=== PATIENT | female | born 1950 | race Caucasian/White ===

== ENCOUNTER → 2023-12-29 12:48 | Outpatient (REF) | payer OTHER, SELFPAY | LOC: RAD 12:48 | PROVIDERS: ATTENDING PHYSICIAN Internal Medicine Rheumatology; FAMILY PHYSICIAN Family Medicine | DX: Z13.820 Encounter for screening for osteoporosis (principal); M81.0 Age-related osteoporosis without current pathological fracture | CPT/HCPCS: 77080 ==

== ENCOUNTER 2024-01-24 06:37 | Day surgery (SDC) | payer OTHER, SELFPAY ==
[2024-01-24 13:30] VITALS: BMI 50.9
[2024-01-24] MEDS: NORMOSOL-R 1000 IV (14:00)
[2024-01-24 16:00] VITALS: BMI 50.9
[2024-01-24 17:46] VITALS: BP 122/81
[2024-01-24 18:00] VITALS: BP 115/91
--- NOTE | 2024-01-24 18:03 | PTCARENOTE ---
1630 Alex , pt's pacing unit, verbalized frustration that they have been here since 1200, OR delay explained, emotional support offered. Nanette Stevens case management director made aware. 165, pt informed OR coming soon, offered blankets and bathroom.
Hilary verbalized anger and frustration, wishes to see case management director and SDs career development manager to complain about delay. Nanette Stevens notified and immediately went bedside to speak to pt and . epic ambulatory specialists here to take pt to the OR at 1715. pt fast
tracked&calm postopP Doroteo RILEY
[2024-01-24 18:15] VITALS: BP 136/71
== END 2024-01-24 18:35 | disposition home or self-care (01) ==
LOC: SDS 06:37
PROVIDERS: ATTENDING PHYSICIAN Orthopaedic Surgery Hand Surgery
DX: G56.02 Carpal tunnel syndrome, left upper limb (principal)
CPT/HCPCS: 64721

== ENCOUNTER → 2024-05-29 15:00 | Outpatient (REF) | payer OTHER, SELFPAY | LOC: MRI 3T 15:00 | PROVIDERS: ATTENDING PHYSICIAN Pain Medicine Interventional Pain Medicine; FAMILY PHYSICIAN Family Medicine | DX: M54.16 Radiculopathy, lumbar region (principal) | CPT/HCPCS: 72148 ==

== ENCOUNTER → 2024-08-31 12:27 | Outpatient (REF) | payer OTHER, SELFPAY | LOC: RCS 12:27 | PROVIDERS: ATTENDING PHYSICIAN Physician Assistant Medical; FAMILY PHYSICIAN Family Medicine | DX: R60.0 Localized edema (principal); I10 Essential (primary) hypertension; I48.0 Paroxysmal atrial fibrillation | CPT/HCPCS: 93306 ==

== ENCOUNTER → 2025-03-29 13:46 | Outpatient (REF) | payer OTHER, SELFPAY | LOC: WDC 13:46 | PROVIDERS: ATTENDING PHYSICIAN Family Medicine | DX: Z12.31 Encounter for screening mammogram for malignant neoplasm of breast (principal) | CPT/HCPCS: 77063; 77067 ==

== ENCOUNTER → 2025-04-09 12:11 | Outpatient (REF) | payer OTHER, SELFPAY | LOC: DHSLP 12:11 | PROVIDERS: ATTENDING PHYSICIAN Family Medicine | DX: G47.33 Obstructive sleep apnea (adult) (pediatric) (principal) | CPT/HCPCS: 95806 ==

== ENCOUNTER 2025-11-17 15:10 | Inpatient (IN) | payer OTHER, SELFPAY ==
[2025-11-17] VITALS (8 sets, daily range): BP systolic 110–183; BP diastolic 39–105; BMI 52.9; BMI 52.8
--- NOTE | 2025-11-17 11:55 | ED.GENMED ---
History of Present Illness
General
Chief Complaint: Breathing Problem
Source: patient and spouse
Exam Limitations: none
Time Seen by Provider: 11/17/25 11:44
History of Present Illness
History of Present Illness:
74-year-old female complaining of cough shortness of breath. Progressive over days. Shortness of breath with exertion. Was ill weeks ago but felt like she was initially getting better. also had a URI at that time. No pleuritic pain no
hemoptysis no sputum. Patient is on Eliquis for atrial fibrillation and faithful with her medications
Past History
Past History
ED Past Medical History: Arrthythmia (PSVT, paroxysmal A. fib), HTN, Hypothyroidism and Other (Cataracts, impaired vision, migraines, back pain); Negative IDDM
ED Past Surgical History: Cardiac (Ablation), Cholecystectomy and Orthopedic
Social History
Tobacco: Non-smoker
Alcohol: None
Drug: None
Personal:
Living: with family
Employment: Employed
Family History
Family History: Hypertension
Review of Systems
Review of Systems
All Other Systems: Not applicable
Constitutional: Denies fever
Respiratory: Reports cough
Cardiac: Denies chest pain or syncope
Phy Exam
Physical Exam
Physical Exam:
GENERAL: Alert and oriented in no apparent distress
EYE: Orbits normal.
NECK: Supple
ENT: Pharynx without erythema
CARDIAC: Regular rate and rhythm without any obvious murmurs.
LUNGS: Occasional coarse cough. Mild bibasilar dry rales and mild end expiratory wheezing on forced expiration
ABDOMEN: Soft, without focal tenderness or distention. Elevated BMI
NEUROLOGICAL: Alert and oriented , grossly non-focal
SKIN: Warm and dry, no rash or lesion, no discoloration, skin intact.
MUSCULOSKELETAL: Chronic nonpitting edema. No erythema no warmth. No cord.
PSYCH: Normal and appropriate interaction.
Scores
Heart Failure Risk
Heart Failure Risk Score: Not Applicable
Course
Orders/Labs/Results
Orders:
Orders
11/17/25 11:51
Electrocardiogram (*1) Stat
Reason for Study: Other
Other Reason for Exam: chest pain
Cardiac Monitoring- Treatment ONCE
EKG- Treatment ONCE
IV Insert/Care/Rem.- Treatment PRN
CR Chest - 2 Views Urgent
Comment:
Reason For Exam: Short of breath
Pulse Ox/cont/shift [RESP] Stat
Quantity: 1
11/17/25 11:57
Basic Metabolic Panel Urgent
COVID-19 Antigen Urgent
Source: Nasal Swab
Complete Blood Count/With Diff Urgent
NT-proBNP Urgent
Troponin I Urgent
Influenza A+B Rapid Molecular Urgent
ALVARO Source: Nasal Swab
Specimen Description:
RSV [Respiratory Syncytial Virus] Urgent
ALVARO Source: Nasal Swab
Specimen Description:
Date Specimen was Collected: 11/17/25
Time Specimen was Collected: 11:53
11/17/25 14:39
CefTRIAXone [Rocephin] 1,000 mg IV NOW STA
Doxycycline Hyclate [Vibramycin] 100 mg 0.9% Sodium Chloride 250 ml [Nss] 250 ml IV NOW
11/17/25 14:58
Admit/Transfer Patient As Directed
Co-Sign Provider:
Level of Care: Inpatient admission
Assign to:: Medical/Surgical
Physician / Group: candis
Diagnosis: pnuemonia
Reason for Hospitalization: pneumonia
Expected length of stay greater than two midnights?: Yes
ELOS- Estimated Length of Stay in days: 2
I certify the patient meets the requirements for IP care: Yes
Code Status As Directed
Resuscitation Status: Do not resuscitate
Reached after discussion with pt or family/Healthcare POA: Yes
PRN Pain Medication Management As Directed
May give lesser potent ordered pain med per pt: Yes
preference::
Protocol:: Medication orders for pain may be administered in a
manner that supports deferring to patient preference
when the pt is:
- Requesting an ordered lesser potent pain medication.
Least to most potent pain medications are defined
as: acetaminophen < NSAID < tramadol < opioids
(morphine, oxycodone, hydromorphone).
- Requesting a lesser dose of the same medication IF
ORDERED.
- Requesting a less intrusive route of administration
if both routes are prescribed by the provider (PO <
IV).
11/17/25 14:59
DNR Bracelet Application ONCE
11/17/25 Dinner
Regular
At Your Request: Full Participation
Does patient need a safe tray?: No
11/17/25 15:20
Blood Culture Q30M
ALVARO Source: Blood/Venous
Specimen Description:
Blood Culture Q30M
ALVARO Source: Blood/Venous
Specimen Description:
11/17/25 16:36
Acetaminophen [Tylenol] 650 mg PO Q4HPRN PRN
CefTRIAXone [Rocephin] 1,000 mg IV Q24H
11/17/25 16:36
VTE Contraindication Routine
VTE Mechanical Device Contraindication: Medical Contraindication
Pharmocologic Contraindication: Medical Contraindication
Activity As Directed
Activity Level: As Tolerated
Vital Signs As Directed
Frequency: Per unit guidelines
11/18/25 05:24
Complete Blood Count/With Diff IN AM
Comprehensive Metabolic Panel IN AM
11/18/25 08:00
Doxycycline Hyclate [Vibramycin] 100 mg 0.9% Sodium Chloride 250 ml [Nss] 250 ml IV Q12H
Abnormal Lab Results
11/17/25
11:57
RBC 3.67 L 10^6/uL
(4.20-5.40)
Hgb 11.2 L g/dL
(12.0-16.0)
Hct 34.4 L %
(37.0-47.0)
MCHC 32.6 L g/dL
(33.0-37.0)
Absolute Lymphs (auto) 0.9 L 10^3/uL
(1.2-3.4)
Neutrophils % 78.2 H %
(42.2-75.2)
Lymphocytes % 13.8 L %
(20.5-51.1)
Potassium 5.2 H mmol/L
(3.5-5.1)
Chloride 108 H mmol/L
(98-107)
BUN 26 H mg/dl
(7-17)
11/17/25 11:57
11/17/25 11:57
Vital Signs
Initial and Last Documented VS:
Initial Vital Signs
Temp Pulse Resp BP Pulse Ox
97.7 F 66 19 183/75 96
11/17/25 11:29 11/17/25 11:29 11/17/25 11:29 11/17/25 11:29 11/17/25 11:29
Last Documented Vital Signs
Temp Pulse Resp BP Pulse Ox
98.3 F 55 18 129/60 97
11/19/25 11:28 11/19/25 11:28 11/19/25 11:28 11/19/25 11:28 11/19/25 11:28
MDM/Problems Addressed
Differential Diagnosis Includes:
Patient complaining of shortness of breath with exertion and cough. Likely infectious etiology. Highly doubt primary ischemic cardiac issue lung findings and cough. Doubt CHF but being evaluated. Highly doubt pulmonary emboli given appropriate
anticoagulation for atrial fibrillation. Workup in progress
*Radiology
Radiology exam reviewed: preliminary read by ED provider (Bibasilar pneumonitis) and radiology read reviewed (Bibasilar pneumonitis. Round mass posterior. Possible pneumonia. Left effusion)
*Pulse Oximetry
SaO2: 96
Oxygen Mode of Delivery: Room air
Patient hypoxic: no
*Critical Care Note
Total Time (30-74mins, 75-104mins- exclusive of procedures): Not Applicable
Data Reviewed
Review of Other/Old Records Reveals: Labs, Records, Radiology Studies and Testing
Update Note
Update Note:
Penicillin allergy was a rash as a child. Cephalosporin reasonable.\\
Significant dyspnea on exertion. What appears to be around pneumonia with effusion and pneumonitis on x-ray. Admission for further care
ED Attending Note
-
Portions of this chart may have been created with voice recognition software.� Occasional wrong word or��sound alike� substitutions may have occurred due to the inherent limitations of voice recognition software.
Discharge Plan
Departure
Patient Disposition: Admit
Date of Disposition: 11/17/25
Time of Disposition: 14:43
Presentation/result/management discussed w/ accepting MD/DO: Hospitalist
Discharge Problem:
Dyspnea on exertion, Probable round pneumonia, Left basilar effusion
Interventions
Interventions:
*General Assessment Last Done: 11/17/25 11:31
*Neglect/Abuse Screening Last Done: 11/17/25 11:31
*ED Influenza Vaccine History Last Done: 11/17/25 11:31
[facility] Fall Risk Assessment Tool Last Done: 11/17/25 16:08
*Risk Screen - Suicide (C-SSRS) Last Done: 11/17/25 11:31
*Nursing Disposition Last Done: 11/17/25 16:30
ED- Cardiac Assessment Last Done: 11/17/25 11:39
ED- Pulmonary Assessment Last Done: 11/17/25 11:39
Discharge Date and Time
Discharge Date/Time: 11/17/25 16:30
[2025-11-17 12:13] LABS: Hematocrit 34.4 % (37.0-47.0); Hemoglobin 11.2 g/dL (12.0-16.0); Mean Corp Hgb Conc. 32.6 g/dL (33.0-37.0); Mean Corpuscular Volume 93.7 fL (81.0-99.0); Nucleated Red Blood Cells % 0 %; Platelet Count 187 10^3/uL (130-400); Red Cell Dist. Width 13.2 % (11.5-14.5)
[2025-11-17 12:26] LABS: COVID-19 Antigen Negative (Negative)
[2025-11-17 12:27] LABS: Blood Urea Nitrogen 26 mg/dl (7-17); Calcium 8.8 mg/dl (8.4-10.2); Carbon Dioxide 27 mmol/L (22-30); Chloride 108 mmol/L (98-107); Estimated Creatinine Clearance 79 ml/min; Glucose 96 mg/dl (70-99); Potassium 5.2 mmol/L (3.5-5.1); Sodium 137 mmol/L (135-145); eGFR 58.75
[2025-11-17 12:39] LABS: Troponin I < 0.012 ng/ml
--- NOTE | 2025-11-17 15:01 | HPS.HSE ---
Addendum entered and electronically signed by Tita Singh MD 11/17/25 16:06:
Code status changed to FUll code.
Addendum entered and electronically signed by Tita Singh MD 11/17/25 15:03:
BNP stable at 2700.
Original Note:
Family Physician
-
Family Physician: Ricardo Chopra Jr.
Chief Complaint
-
cough
History of Present Illness
74-year-old female past medical history of paroxysmal atrial fibrillation status post PVI on Eliquis, atrial tachycardia status post ablation, hypothyroidism, hypertension, chronic lower extreme edema, obesity, presenting with dry cough and
shortness of breath progressive over the past week. Shortness of breath occurs with exertion. She had upper respiratory infection few weeks ago with cough, sore throat and her also had this but this is improved.
She denies any weight gain or weight loss. Denies any fevers or chills. Denies any body aches. She has runny nose.
Denies smoking or alcohol use.
Medical History
Past Medical History
Past Medical History: Reports Other (paroxysmal atrial fibrillation status post PVI on Eliquis, atrial tachycardia status post ablation, hypothyroidism, hypertension, chronic lower extreme edema, obesity)
Past Surgical History: Reports Other (Cardiac (Ablation), Cholecystectomy and Orthopedic)
Social History
Tobacco: Non-smoker
Alcohol: None
Drug: None
Family History
Family History: Not pertinent
Allergies / Home Medications
Allergies reflects when Allergies were last updated in [facility].
Home Medications with original date entered in [facility]
Allergy/Medication List:
Allergies
Allergy/AdvReac Type Severity Reaction Status Date / Time
Penicillins Allergy Rash Verified 01/24/24 13:24
Sulfa (Sulfonamide Allergy Rash Verified 01/24/24 13:24
Antibiotics)
Home Medications
calcium 315 mg (as citrate)-vitamin D3 6.25 mcg (250 unit) tablet (Citracal + Vitamin D Maximum) 2 tab PO DAILY Supplement 05/05/17
apixaban 5 mg tablet (Eliquis) 5 mg PO BID Blood clot prevention/tx 09/11/22
atorvastatin 10 mg tablet 10 mg PO HS High cholesterol 09/11/22
denosumab 60 mg/mL subcutaneous syringe (Prolia) 60 mg SC [id number] Arthritis 09/11/22
spironolactone 25 mg tablet 12.5 mg PO MOWEFR 09/11/22
levothyroxine 75 mcg tablet 75 mcg PO DAILY 11/02/22
atenolol 25 mg tablet 25 mg PO BID Blood pressure 11/03/22
diltiazem HCl 120 mg capsule,extended release 24 hr 120 mg PO DAILY Arrhythmia #30 caps 11/04/22
dofetilide 250 mcg capsule 250 mcg PO BID Arrhythmia #60 caps 11/04/22
furosemide 20 mg tablet 20 mg PO DAILY Fluid retention/Swelling #30 tabs 11/04/22
cholecalciferol (vitamin D3) 25 mcg (1,000 unit) tablet (Vitamin D3) 75 mcg PO DAILY 01/19/24
gabapentin 100 mg capsule 300 mg PO HS 01/19/24
ketotifen fumarate 0.025 % (0.035 %) eye drops 1 drp ophthalmic (eye) BID 01/19/24
levothyroxine 37.5 mcg capsule 37.5 mcg PO DIRECTED 01/19/24
Review of Systems
-
History Source: Patient
A 12 point ROS was completed and negative except as noted: Yes
Constitutional: Reports No Symptoms
EENT: Reports No Symptoms
Respiratory: Reports See HPI
Cardiac: Reports No Symptoms
Abdomen/GI: Reports No Symptoms
: Reports No Symptoms
Musculoskeletal: Reports No Symptoms
Skin: Reports No Symptoms
Neurological: Reports No Symptoms
Endocrine: Reports No Symptoms
Hematologic/Lymphatic: Reports No Symptoms
Psych: Reports No Symptoms
Physical Exam
Vital Signs
Vital Signs
Temp Pulse Resp BP Pulse Ox
97.7 F 60 20 124/67 100
11/17/25 11:29 11/17/25 13:48 11/17/25 13:48 11/17/25 13:00 11/17/25 13:48
Physical Exam
General: Well Developed, Well Nourished and No Apparent Distress
HEENT: NormoCephalic, Moist mucous membranes and Atraumatic
Respiratory: Clear
Cardiac: S1/S2 and Regular Rhythm; No Murmur or Rub
GI: Soft, Non Tender, Non Distended and Normal Bowel Sounds; No Organomegaly
Rectal: Deferred by Provider
Musculoskeletal: No Clubbing, No Cyanosis and No Edema
Skin: No Rash
Neuro: Nonfocal/grossly intact
Laboratory Results
-
11/17/25 11:57
11/17/25 11:57
Laboratory Results
Troponin I < 0.012 ng/ml 11/17/25 11:57
Data Reviewed
-
Lab Data: Labs Reviewed by me
Old Records: Reviewed
Impression/Plan
-
IMPRESSION:
PLAN:
# Bilateral community acquired pneumonia
-Chest x-ray shows bilateral pneumonia which is moderate, small right pleural effusion, cardiomegaly, repeat chest x-ray in 2 weeks
- COVID, flu, RSV negative
- Check strep, Legionella
-Blood cultures pending
- Ceftriaxone/doxycycline
Paroxysmal atrial fibrillation status post PVI
- Continue diltiazem, Tikosyn
- Continue Eliquis
Atrial tachycardia status post ablation
Hypothyroidism
- Continue levothyroxine
Essential hypertension
- Continue atenolol, spironolactone
Chronic lower extremity edema
- Continue Lasix
Obesity
Hypercholesteremia
- Continue statin
DNR/DNI
DVT prophylaxis�Eliquis
Regular diet
[2025-11-17] MEDS: ROCEPHIN 1000 MG IV (15:28)
[2025-11-17] MEDS: VIBRAMYCIN 260 MG IV (15:54)
--- NOTE | 2025-11-17 15:55 | EDCM ---
Reviewed chart and met with pt bedside in ED. Lives with her in [address], [address]. Has chair lift to second floor.
Needs assistance with ADLs, independent in personal care, ambulates with cane downstairs and walker upstairs.
PMH includes Afib, HTN, Hypothyroid, Migraines, cataracts, Back pain
Confirms prescription coverage
Hx VN after knee replacement several years ago, no hx SNF
PCP: Shahnaz Chopra
Rx: [facility] [address], [facility] for mail order
CM will continue to follow for all discharge planning needs.
[2025-11-17] MEDS: ELIQUIS 5 MG PO (21:03)
[2025-11-17] MEDS: TIKOSYN 250 MCG PO (21:03)
[2025-11-17] MEDS: LIPITOR 10 MG PO (21:04)
[2025-11-17] MEDS: TENORMIN 25 MG PO (21:04)
[2025-11-18 03:00] VITALS: BP 131/64
[2025-11-18 06:00] LABS: Hematocrit 31.3 % (37.0-47.0); Hemoglobin 10.2 g/dL (12.0-16.0); Mean Corp Hgb Conc. 32.6 g/dL (33.0-37.0); Mean Corpuscular Volume 91.8 fL (81.0-99.0); Nucleated Red Blood Cells % 0 %; Platelet Count 184 10^3/uL (130-400); Red Cell Dist. Width 13.5 % (11.5-14.5)
[2025-11-18 06:17] LABS: ALT (SGPT) 10 U/L (0-35); AST (SGOT) 19 U/L (14-36); Albumin 3.1 g/dl (3.5-5.0); Alkaline Phosphatase 77 U/L (38-126); Blood Urea Nitrogen 23 mg/dl (7-17); Calcium 8.5 mg/dl (8.4-10.2); Carbon Dioxide 24 mmol/L (22-30); Chloride 107 mmol/L (98-107); Estimated Creatinine Clearance 78 ml/min; Glucose 91 mg/dl (70-99); Potassium 4.8 mmol/L (3.5-5.1); Sodium 133 mmol/L (135-145); Total Protein 6.1 g/dl (6.3-8.2); eGFR 58.75
[2025-11-18 07:36] VITALS: BP 132/69
[2025-11-18] MEDS: TIKOSYN 250 MCG PO ×2 (08:18→20:29)
[2025-11-18] MEDS: LASIX 20 MG PO (08:18)
[2025-11-18] MEDS: TENORMIN 25 MG PO ×2 (08:19→20:29)
[2025-11-18] MEDS: ALDACTONE 12.5 MG PO (08:19)
[2025-11-18] MEDS: ELIQUIS 5 MG PO ×2 (08:19→20:30)
[2025-11-18] MEDS: SYNTHROID 37.5 MCG PO (08:20)
[2025-11-18] MEDS: CARDIZEM CD 120 MG PO (08:22)
[2025-11-18] MEDS: VIBRAMYCIN 260 MG IV ×2 (08:22→20:29)
--- NOTE | 2025-11-18 08:30 | W.PN.HOSP.TC ---
Today's Communication/Plan
-
Continue antibiotics
Start Mucinex
Follow-up cultures
Monitor respiratory status
Assessment / Plan
Assessment / Plan
#Bilateral CAP
#Small right pleural effusion
Presented with dyspnea, CXR showing findings consistent with bilateral pneumonia
Hemodynamically stable, not requiring supplemental oxygen on arrival, viral panel negative
Viral panel negative blood cultures obtained, started on IV ceftriaxone and doxycycline empirically
Order sputum cultures, follow-up blood cultures, trend CBC and temperature curve
Continue with IV ceftriaxone and doxycycline, follow-up urinary antigens
Consider IR consult for Dx thora if not clinically improving as anticipated
Mucinex, Pulmonary toileting as needed
SpO2 goal >90%
#Paroxysmal AF s/p PVI
Home regimen includes dofetilide, atenolol, diltiazem, Eliquis
Currently in NSR with rate WNL
Monitor on telemetry
#Hypothyroidism
Unclear etiology, Home regimen includes levothyroxine 75 mcg M-Sa and 37.5 mcg Swenson
No signs or symptoms of thyroid dysfunction
#Primary hypertension
No known hypertensive systemic disease
Home regimen includes spironolactone, atenolol, diltiazem, Lasix
Blood pressure currently well-controlled
#Chronic venous insufficiency
Home regimen includes Lasix 20 mg daily
Continue home regimen encourage compression devices
#Dyslipidemia
No known history of ASCVD
Home regimen includes moderate intensity atorvastatin
#Super morbid obesity
BMI 52.8, weight 157 kg
Affects all aspects of care
Encourage aerobic activity as tolerated, Mediterranean diet
Consideration for outpatient GLP-1 versus bariatric eval
OP sleep study
Diet: Regular
DVT: Home Eliquis
Code: Full code
Dispo: Home in 24 to 48 hours
Anticipated Discharge: 24 - 48 hours
Subjective/Interval History
-
Date of Service: November 18, 2025
Seen and examined at the bedside. NAEON. GARIBAY today
Labs stable, denies any new complaints
Objective Data
-
Labs:
Laboratory Results
11/18/25
05:24
WBC 7.3
Hgb 10.2 L
Hct 31.3 L
Plt Count 184
Sodium 133 L
Potassium 4.8
Chloride 107
Carbon Dioxide 24
BUN 23 H
Creatinine 1.0
Glucose 91
Calcium 8.5
Total Bilirubin 0.9
AST 19
ALT 10
Alkaline Phosphatase 77
Vital Signs:
Vital Signs
Temp Pulse Resp BP Pulse Ox
97.7 F 76 18 132/69 93
11/18/25 07:36 11/18/25 07:36 11/18/25 07:36 11/18/25 07:36 11/18/25 07:36
Review of Systems
-
History Source: Patient
All other systems: Reviewed and negative
Physical Exam
-
General: Well Developed, No Apparent Distress and Morbidly Obese
HEENT: Normocephalic, Atraumatic, Moist Mucous Membranes and Anicteric
Respiratory: Non Labored Respirations and Decreased Breath Sounds; Negative Wheezes, Rales, Rhonchi or Accessory Resp Muscle Use
Cardiac: Regular Rhythm and S1/S2; Negative Murmur, Rub or Gallop
GI: Soft, Nontender, Nondistended and Normal Bowel Sounds
Musculoskeletal: No Clubbing, No Cyanosis and No Edema
Skin: Warm and Dry; Negative Rash
Neuro: AO x 3, Nonfocal/Grossly Intact and Central Nerve's Intact
Psych: Calm
Data Reviewed
-
Labs: Labs Reviewed by me, Discussed with Nurse and Discussed with Patient
[2025-11-18] MEDS: MUCINEX 1200 MG PO ×2 (10:34→20:28)
[2025-11-18] MEDS: OSCAL 500 + D 1000 MG PO (11:03)
[2025-11-18] MEDS: VITAMIN D3 (cholecalciferol) 75 MCG PO (11:03)
[2025-11-18 11:37] VITALS: BP 126/54
[2025-11-18] MEDS: STERILE WATER FOR INJECTION 10 ML IV (15:07)
[2025-11-18] MEDS: ROCEPHIN 1000 MG IV (15:07)
[2025-11-18 15:36] VITALS: BP 147/71
[2025-11-18 19:33] VITALS: BP 130/69
[2025-11-18] MEDS: LIPITOR 10 MG PO (20:28)
[2025-11-18 23:29] VITALS: BP 152/72
[2025-11-19 03:26] VITALS: BP 144/70
[2025-11-19] MEDS: SYNTHROID 75 MCG PO (05:48)
[2025-11-19 07:45] VITALS: BP 139/65
[2025-11-19] MEDS: ALDACTONE 12.5 MG PO (07:56)
[2025-11-19] MEDS: CARDIZEM CD 120 MG PO (07:57)
[2025-11-19] MEDS: ELIQUIS 5 MG PO (07:57)
[2025-11-19] MEDS: LASIX 20 MG PO (07:57)
[2025-11-19] MEDS: MUCINEX 1200 MG PO (07:57)
[2025-11-19] MEDS: TENORMIN 25 MG PO (07:57)
[2025-11-19] MEDS: TIKOSYN 250 MCG PO (07:58)
[2025-11-19] MEDS: VIBRAMYCIN 260 MG IV (07:59)
[2025-11-19 08:03] LABS: Hematocrit 32.1 % (37.0-47.0); Hemoglobin 10.4 g/dL (12.0-16.0); Mean Corp Hgb Conc. 32.4 g/dL (33.0-37.0); Mean Corpuscular Volume 91.5 fL (81.0-99.0); Nucleated Red Blood Cells % 0 %; Platelet Count 174 10^3/uL (130-400); Red Cell Dist. Width 13.5 % (11.5-14.5)
[2025-11-19 08:31] LABS: Blood Urea Nitrogen 21 mg/dl (7-17); Calcium 8.6 mg/dl (8.4-10.2); Carbon Dioxide 23 mmol/L (22-30); Chloride 106 mmol/L (98-107); Estimated Creatinine Clearance 71 ml/min; Glucose 87 mg/dl (70-99); Magnesium 1.9 mg/dl (1.6-2.3); Potassium 4.5 mmol/L (3.5-5.1); Sodium 135 mmol/L (135-145); eGFR 52.40
--- NOTE | 2025-11-19 09:29 | W.PN.HOSP.TC ---
Today's Communication/Plan
-
Plan to discharge on oral antibiotics, incentive spirometry in a couple
Assessment / Plan
Assessment / Plan
Impression
74-year-old female with past medical history of paroxysmal atrial fibrillation s/p PVI on Eliquis, atrial tachycardia s/p ablation, hypothyroidism, hypertension, chronic lower extremity edema, obesity admitted with shortness of breath progressive
over the past week.
She recently recovered an upper respiratory infection a couple of weeks ago
Denies any fever or chills, no body aches
No requirement of oxygen
Clinically, vitally and hemodynamically stable
Assessment/plan
#Bilateral CAP
#Small right pleural effusion
Presented with dyspnea, CXR showing findings consistent with bilateral pneumonia
Hemodynamically stable, not requiring supplemental oxygen on arrival, viral panel negative
Viral panel negative blood cultures Negative, started on IV ceftriaxone and doxycycline empirically
Sputum culture negative
Plan to discharge on oral antibiotics
Mucinex, Pulmonary toileting as needed
Incentive spirometry/Acapella
#Paroxysmal AF s/p PVI
Home regimen includes dofetilide, atenolol, diltiazem, Eliquis
Currently in NSR with rate WNL
Monitor on telemetry
#Hypothyroidism
Unclear etiology, Home regimen includes levothyroxine 75 mcg M-Sa and 37.5 mcg Swenson
No signs or symptoms of thyroid dysfunction
#Primary hypertension
No known hypertensive systemic disease
Home regimen includes spironolactone, atenolol, diltiazem, Lasix
Blood pressure currently well-controlled
#Chronic venous insufficiency
Home regimen includes Lasix 20 mg daily
Continue home regimen encourage compression devices
#Dyslipidemia
No known history of ASCVD
Home regimen includes moderate intensity atorvastatin
#Super morbid obesity
BMI 52.8, weight 157 kg
Affects all aspects of care
Encourage aerobic activity as tolerated, Mediterranean diet
Consideration for outpatient GLP-1 versus bariatric eval
OP sleep study and follow-up with pulmonary medicine/sleep specialist
Diet: Regular
DVT: Home Eliquis
Code: Full code
Dispo: Home in 24 to 48 hours
Anticipated Discharge: Within 24 hours
Subjective/Interval History
-
Date of Service: November 19, 2025
Patient seen and examined at bedside
Breathing on room air vitally and hemodynamically stable
No new complaints
Objective Data
-
Labs:
Laboratory Results
11/19/25
07:46
WBC 6.1
Hgb 10.4 L
Hct 32.1 L
Plt Count 174
Sodium 135
Potassium 4.5
Chloride 106
Carbon Dioxide 23
BUN 21 H
Creatinine 1.1 H
Glucose 87
Calcium 8.6
Vital Signs:
Vital Signs
Temp Pulse Resp BP Pulse Ox
97.9 F 66 20 139/65 96
11/19/25 07:45 11/19/25 07:45 11/19/25 07:45 11/19/25 07:45 11/19/25 07:45
I&O
11/18/25 11/19/25 11/20/25
06:59 06:59 06:59
Intake Total 1570 / 1570
Balance 1570 / 1570
Review of Systems
-
All other systems: Reviewed and negative
Physical Exam
-
General: Well Developed, No Apparent Distress and Morbidly Obese
HEENT: Normocephalic, Atraumatic, Moist Mucous Membranes, Anicteric and [place] Conjunctivae
Respiratory: Clear to Auscultation and Non Labored Respirations; Negative Wheezes, Rales or Rhonchi
Cardiac: Regular Rhythm and S1/S2; Negative Murmur, Rub or Gallop
GI: Soft, Nontender, Nondistended and Normal Bowel Sounds
Musculoskeletal: No Clubbing and No Cyanosis
Skin: Warm and Dry; Negative Rash, Ulcers or Lesions
Neuro: Awake, AO x 3 and No Motor Deficits
Psych: Calm
[2025-11-19] MEDS: OSCAL 500 + D 1000 MG PO (11:03)
[2025-11-19] MEDS: VITAMIN D3 (cholecalciferol) 75 MCG PO (11:03)
[2025-11-19 11:28] VITALS: BP 129/60
--- NOTE | 2025-11-19 17:50 | W.DCSUMMARY ---
Addendum entered and electronically signed by Lyndon Garcia MD 11/20/25 16:47:
I personally reviewed and evaluated this patient with the resident. I agree with above unless if otherwise stated below.
I personally reviewed labs and imaging makeup sales consultant notes case management note
Pneumonia complete 5-day course with CAP coverage with Rocephin Doxy can transition to oral antibiotics
Will need outpatient sleep study likely has component of OHS/STEFANI a
Does not want bariatric follow-up
Working with PCP to get Ozempic however insurance denying. Would benefit as she has obesity hypoventilation syndrome and likely able to reduce other comorbid conditions such as hypertension and hyperlipidemia
Original Note:
Discharge Summary
Discharge Data
Date of Admission: 11/17/25
Date of Discharge: 11/19/25
-
Pending Results: No
Hospital Course
Discharging Physician :
Lyndon Garcia, Reginaldo Cheney
Disposition :
Home
Primary care physician :
Ricardo Chopra Jr.
Principal Discharge diagnosis :
Bilateral CAP
Small right pleural effusion
Chronic Discharge diagnosis :
paroxysmal atrial fibrillation status post PVI on Eliquis, atrial tachycardia status post ablation, hypothyroidism, hypertension, chronic lower extreme edema, obesity
Cardiac (Ablation), Cholecystectomy and Orthopedic)
Hospital Course :
74-year-old female with past medical history of paroxysmal atrial fibrillation s/p PVI on Eliquis, atrial tachycardia s/p ablation, hypothyroidism, hypertension, chronic lower extremity edema, obesity admitted with shortness of breath progressive
over the past week.
She recently recovered an upper respiratory infection a couple of weeks ago.Viral panel negative blood cultures Negative, started on IV ceftriaxone and doxycycline empirically
Sputum culture negative.
Patient responded well to antibiotics, plan to transition to oral antibiotics. Received IV antibiotics for 3 days, 2 more days of oral antibiotics on outpatient basis and follow-up with primary care physician
Patient is morbidly obese, discussed weight loss medications and Bariatric surgery which the patient would like to discuss with her primary care physician
Also discussed the need to see a sleep specialist for obesity hypoventilation syndrome
She did have a small right-sided pleural effusion most likely para pneumonic, patient remained afebrile and hemodynamically stable with no requirement of oxygen
Clinically stable for discharge with workup for sleep apnea, morbid obesity and cardiomegaly on outpatient basis
Important imaging findings :
Chest Xray 11/17/25
IMPRESSION:
Findings suggesting bilateral pneumonia. Overall moderate. Repeat exam in 2 weeks recommended after treatment to confirm resolution or improvement. No
Small right pleural effusion. New
Cardiomegaly. New.There is moderate arch calcification
Discharge Plan
-
Patient Disposition: Home (Routine Discharge)
Discharge Diagnosis/Procedures: Bilateral CAP
Small right pleural effusion
Condition: Fair
Diet: Low Cholesterol
Activity: As tolerated
Driving Restrictions: As prior to admission
Bathing Restrictions: OK to Shower
Referrals:
Ricardo Chopra Jr., DO [Family Provider, Internal Medicine] - in less than 1 week
Prescriptions:
New
amoxicillin-pot clavulanate 875-125 mg tablet
1 tab PO Q12H 2 Days Qty: 5 0RF
doxycycline hyclate 100 mg tablet,delayed release (DR/EC)
100 mg PO BID 2 Days Qty: 5 0RF
(DME) mucus clearing device Device
See Rx Instructions .Route Qty: 10 0RF
Rx Instructions:
As directed
Continued
calcium citrate-vitamin D3 [Citracal + D Maximum] 1 EACH tablet
2 tab PO NOON
atorvastatin 10 mg Tablet
10 mg PO HS
spironolactone 25 mg Tablet
12.5 mg PO DAILY
Eliquis 5 mg Tablet
5 mg PO BID
levothyroxine 75 mcg Tablet
75 mcg PO MOTUWETHFRSA
Rx Instructions:
Mon, Tue, Wed, Th, Fri, Sat
atenolol 25 MG tablet
25 mg PO BID
dofetilide 250 mcg Capsule
250 mcg PO BID Qty: 60 11RF
diltiazem HCl 120 mg Capsule,Extended Release 24hr
120 mg PO DAILY Qty: 30 11RF
furosemide 20 mg Tablet
20 mg PO DAILY Qty: 30 0RF
cholecalciferol (vitamin D3) [Vitamin D3] 25 mcg (1,000 unit) Tablet
75 mcg PO NOON
levothyroxine 37.5 mcg Capsule
37.5 mcg PO BRANTLEY
Rx Instructions:
Q WEDNESDAY
ketotifen fumarate 0.025 % (0.035 %) Drops
1 drp OPHTHALMIC (EYE) DAILYPRN PRN (Reason: itchy eyes)
acetaminophen 500 mg Tablet
1,000 mg PO DAILYPRN PRN (Reason: mild pain)
Discharge Orders:
Discharge Patient (As Directed); Ordered 11/19/25
Ordered By: Reginaldo Pitts
Discharge Date and Time
Discharge Date/Time: 11/19/25 14:17
Print Language: PORTUGUESE
== END 2025-11-19 14:17 | disposition home or self-care (01) | DRG 194 ==
LOC: 4 WEST ACU 15:10
PROVIDERS: Internal Medicine; ADMITTING PHYSICIAN Hospitalist; ATTENDING PHYSICIAN Hospitalist; EMERGENCY PHYSICIAN Emergency Medicine; FAMILY PHYSICIAN Family Medicine
DX: J18.9 Pneumonia, unspecified organism (principal); I47.19 Other supraventricular tachycardia; Z68.43 Body mass index [BMI] 50.0-59.9, adult; Z11.52 Encounter for screening for COVID-19; I48.0 Paroxysmal atrial fibrillation; E03.9 Hypothyroidism, unspecified; I11.9 Hypertensive heart disease without heart failure; E66.01 Morbid (severe) obesity due to excess calories; Z66 Do not resuscitate; Z79.01 Long term (current) use of anticoagulants
CPT/HCPCS: 71046; 80048; 80053; 83735; 83880; 84484; 85025; 87040; 87502; 87807; 87811; 93005; 94760; 96365; 96375; 99285